=== PATIENT | male | born 2000 | race Caucasian/White ===

== ENCOUNTER 2025-04-02 00:25 | Emergency (ER) | payer OTHER, SELFPAY ==
[2025-04-02 00:27] VITALS: BP 141/91
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
[2025-04-02] MEDS: ADACEL 0.5 ML IM (01:43)
== END 2025-04-02 01:52 | disposition home or self-care (01) ==
LOC: EMR 00:25
PROVIDERS: EMERGENCY PHYSICIAN Emergency Medicine
DX: S50.811A Abrasion of right forearm, initial encounter (principal); V20.49XA Other motorcycle driver injured in collision with pedestrian or animal in traffic accident, initial encounter; Y92.410 Unspecified street and highway as the place of occurrence of the external cause; Z23 Encounter for immunization; L30.9 Dermatitis, unspecified; Z88.1 Allergy status to other antibiotic agents; Z88.2 Allergy status to sulfonamides
CPT/HCPCS: 99283; 90471; 90715